=== PATIENT | female | born 1980 | race Caucasian/White ===

== ENCOUNTER 2020-05-17 23:41 | Emergency (ER) | payer OTHER ==
[2020-05-18 01:30] LABS: HEMOGLOBIN 14.2 gm/dl (12.3-15.3); RED BLOOD COUNT 4.32 M/UL (4.00-5.10); WHITE BLOOD COUNT 12.1 K/UL (4.5-11.0)
[2020-05-18 01:37] LABS: BUN/CREATININE RATIO 11 (0-10)
== END 2020-05-18 03:20 | disposition home or self-care (01) ==
LOC: ER1 23:41
PROVIDERS: Emergency Medicine
DX: R10.32 Left lower quadrant pain (principal)
CPT/HCPCS: 80053; 81001; 83690; 85025; 87086; 96374; 96375; 99284; J1885; J2405; J7030

== ENCOUNTER → 2020-11-17 | Outpatient (CLI) | payer OTHER | LOC: MAMO 10-06 10:30 | DX: Z12.31 Encounter for screening mammogram for malignant neoplasm of breast (principal) | CPT/HCPCS: 77063; 77067 ==